=== PATIENT | male | born 1980 | race Two or more races ===

== ENCOUNTER 2024-08-05 17:32 | Emergency (ER) | payer MEDICAID, SELFPAY ==
[2024-08-05 17:33] VITALS: BMI 24.7
[2024-08-05 20:02] VITALS: BP 140/88; PULSE 76; RESP 18; TEMP 37.6; O2SAT 97
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
--- NOTE | 2024-08-05 20:11 | XR_ITS ---
Examination: CT maxillofacial, without intravenous contrast. 2-D sagittal reconstructions. 3-D reconstructions. Date and time of exam:August 05, 2024, 11:49 PM INDICATIONS: Left facial swelling today CTDI: vol (mGy):20.6 DLP: (mGycm):380 Technique: Multiple axial images of maxillofacial region, 3.0 mm slice thickness. 2-D sagittal and coronal reconstructions. 3-D reconstructions. Low dose protocols were performed. One or more of the following dose reduction techniques were used; automated exposure control, adjustment of the mA and/or KV according to patient size, use of iterative reconstruction technique. Findings: Frontal bone orbital rims intact Significant left maxillary sinus disease No nasal bone fracture No depression zygomatic arches Maxilla and mandible are intact The images are not centered No soft tissue abscess IMPRESSION: No acute fracture.
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
[2024-08-05] MEDS: DIPHTH,PERTUSS(ACELL),TET VAC 0.5 ML SYR- ADULT IMi (23:20)
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
[2024-08-06 01:16] VITALS: BP 164/71; PULSE 79; RESP 19; TEMP 37.2; O2SAT 98
[2024-08-06] MEDS: AMOXICILLIN/POT CLAV 875 TABLET 1 TAB PO ×2 (01:53)
== END 2024-08-06 02:18 | disposition home or self-care (01) ==
PROVIDERS: Emergency Provider Emergency Medicine
DX: S09.90XA Unspecified injury of head, initial encounter (principal); K04.7 Periapical abscess without sinus; W20.8XXA Other cause of strike by thrown, projected or falling object, initial encounter
CPT/HCPCS: 70450; 70486; 90471; 90715; 99284; A9270

== ENCOUNTER 2024-08-23 17:53 | Emergency (ER) | payer MEDICAID, SELFPAY ==
[2024-08-23 18:08] VITALS: BP 133/96; PULSE 95; RESP 16; TEMP 36.7; O2SAT 97
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
[2024-08-23] MEDS: FAMOTIDINE 20 MG TABLET PO (18:52)
[2024-08-23] MEDS: DiphenhydrAMINE 25 MG CAPSULE PO (18:53)
[2024-08-23] MEDS: DIAZEPAM 5 MG TABLET PO (18:53)
[2024-08-23] MEDS: DEXAMETHASONE SOD PHOS INJ 10 MG/ML VIAL PO (18:53)
[2024-08-23 20:01] VITALS: BP 122/77; PULSE 78; O2SAT 98
== END 2024-08-23 20:04 | disposition home or self-care (01) ==
PROVIDERS: Emergency Provider Emergency Medicine; PCP Family Medicine
DX: T63.441A Toxic effect of venom of bees, accidental (unintentional), initial encounter (principal); R06.00 Dyspnea, unspecified
CPT/HCPCS: 99282; J1100; A9270

== ENCOUNTER 2025-02-05 15:36 | Emergency (ER) | payer MEDICAID, SELFPAY ==
[2025-02-05 15:54] VITALS: PULSE 78; O2SAT 98; BMI 21.9
[2025-02-05 16:09] VITALS: BP 158/91; PULSE 81; RESP 18; TEMP 36.6; O2SAT 98
--- NOTE | 2025-02-05 16:19 | EKG_ITS ---
[facility] Test Date: 2025-02-05 Pat Name: GUILLERMINA MONTILLA Department: Room: - Gender: Male [employer] Developer: : 1980 Requested By: Josemanuel Bacon Order Number: [id number] Reading MD: Josemanuel Bacon Measurements Intervals Roby Rate: 79 P: 78 AL: 130 QRS: 59 QRSD: 94 T: 68 QT: 390 QTc: 450 Interpretive Statements SINUS RHYTHM MODERATE VOLTAGE CRITERIA FOR LVH, CONSIDER NORMAL VARIANT [MEETS CRITERIA IN ONE OF: R(aVL), S(V1), R(V5), R(V5/V6)+S(V1)] No previous ECG available for comparison /store/[email or web address]/[id number].pdf
--- NOTE | 2025-02-05 16:21 | PD.EDNV ---
Nausea/Vomit./Diarrhea-RME/HPI General Chief complaint: Nausea/Vomiting/Diarrhea Stated complaint: VOMITING AFTER DRINKING 6 BEERS AND USING METH Time Seen by Provider: 02/05/25 15:44 Arrival date/time: 02/05/25 15:36 Related Data Allergies Allergy/AdvReac Type Severity Reaction Status Date / Time No Known Allergies Allergy Verified 02/05/25 15:57 Course Orders Category Date Time Status EKG (ED ONLY) *Do not use* NOW Care 02/05/25 16:19 Active EKG (ED Only) Stat Exams 02/05/25 16:19 Ordered Alcohol, Blood Medical Stat Lab 02/05/25 16:20 Ordered CBC Stat Lab 02/05/25 16:20 Ordered CMP [Comprehensive Metabolic Panel] Stat Lab 02/05/25 16:20 Ordered Drug Screen,Urine Stat Lab 02/05/25 16:20 Ordered Lipase Stat Lab 02/05/25 16:20 Ordered Troponin I Stat Lab 02/05/25 16:21 Ordered UA [Urinalysis] Stat Lab 02/05/25 16:20 Ordered Vital Signs Vital signs: Vital Signs Temperature 98 F 02/05/25 16:09 Pulse Rate 81 02/05/25 16:09 Respiratory Rate 18 02/05/25 16:09 Blood Pressure 158/91 H 02/05/25 16:09 Pulse Oximetry (%) 98 02/05/25 16:09 Oxygen Delivery Method Room Air 02/05/25 16:09 Discharge Plan Patient/Caregiver Discharge Instructions Print Language: Upper Sorbian
--- NOTE | 2025-02-05 16:22 | PD.EDRME ---
Rapid Medical Screening Exam RME Arrival date/time: 02/05/25 15:36 Chief Complaint: Nausea/Vomiting/Diarrhea Time Seen by Provider: 02/05/25 15:44 Vital signs: Vital Signs Temperature 98 F 02/05/25 16:09 Pulse Rate 81 02/05/25 16:09 Respiratory Rate 18 02/05/25 16:09 Blood Pressure 158/91 H 02/05/25 16:09 Pulse Oximetry (%) 98 02/05/25 16:09 Oxygen Delivery Method Room Air 02/05/25 16:09 E Narrative: Patient reports n/v today after drinking a 6-pack and smoking meth today.
[2025-02-05 16:42] LABS: Collection Type, Urine Clean Catch; RBC,Urine 0 /hpf (0-3); WBC,Urine 0 /hpf (0-5)
[2025-02-05 17:07] LABS: Amorphous Crystals,Urine Present (Absent); Bilirubin,Urine Negative (Negative); Blood,Urine Negative (Negative); Glucose, Urine Negative (Negative); Ketones,Urine 1+ (Negative); Leukocyte Esterase,Urine Negative (Negative); Nitrite,Urine Negative (Negative); PH,Urine 7.0 (5.0-7.0); Protein,Urine Trace (Neg - Trace); Specific Gravity,Urine 1.015 (1.001-1.035); Squamous Epithelial Cell,Urine < 1 /hpf (0-5); Urobilinogen,Urine Negative mg/dL (0.0-1.0)
[2025-02-05 17:07] LABS: Basophils # (Auto) 0.0 Thou/mm3 (0.0-0.2); Basophils % (Auto) 0 % (0-2.5); Eosinophils # (Auto) 0.1 Thou/mm3 (0.0-0.5); Eosinophils % (Auto) 1 % (0-10); Hematocrit 47.4 % (41.0-53.0); Hemoglobin 16.3 g/dL (13.5-16.0); Immature Granulocytes Auto 0.03 Thou/mm3 (0.00-0.00); Lymphocytes # (Auto) 0.8 Thou/mm3 (1.0-4.8); Lymphocytes % (Auto) 9 % (10-50); Mean Corpuscular HGB Conc 34.4 g/dl (31.0-37.0); Mean Corpuscular Hemoglobin 30.0 pg (25.0-35.0); Mean Corpuscular Volume 87 fL (80-100); Monocytes # (Auto) 0.7 Thou/mm3 (0.0-0.8); Monocytes % (Auto) 7 % (0-12); Neutrophils # (Auto) 7.1 Thou/mm3 (1.8-7.7); Neutrophils % (Auto) 82 % (37-80); Nucleated Red Blood Cell # 0.00 Thou/mm3 (0.00-0.00); Nucleated Red Blood Cell % 0 /100 WBC (0); Platelet Count 261 Thou/mm3 (140-440); RDW Standard Deviation 41.6 fL (35.1-43.9); Red Blood Count 5.43 Miln/mm3 (4.50-5.90); White Blood Count 8.8 Thou/mm3 (3.8-10.6)
[2025-02-05 17:08] LABS: Amphetamine/Methamp Scrn,U Positive (Negative); Barbiturate Screen,Urine Negative (Negative); Benzodiazepines Screen,Urine Negative (Negative); Benzoylecgonine Screen, Ur Negative (Negative); Fentanyl Screen,Urine Positive (Negative); Opiate Screen,Urine Negative (Negative); THC Screen,Urine Negative (Negative)
[2025-02-05 17:15] LABS: Clarity,Urine Turbid (Clear/Hazy); Color,Urine Yellow (Lt Yel-Yel)
[2025-02-05 17:30] LABS: Alanine Aminotransferase 33 U/L (10-49); Albumin, Serum 5.1 gm/dL (3.5-5.0); Albumin/Globulin Ratio 1.7 (1.2-2.2); Alcohol, Blood Medical < 3.0 mg/dL (0-10.0); Alkaline Phosphatase 77 U/L (46-116); Anion Gap 9 (7-16); Aspartate Amino Transferase 33 U/L (0-34); BUN/Creatinine Ratio 9 Ratio (12-20); Bilirubin,Total 0.5 mg/dL (0.3-1.2); Blood Urea Nitrogen 7 mg/dL (9-23); Calcium 9.8 mg/dL (8.3-10.6); Calcium (Corrected) 9.8 mg/dL (8.5-10.1); Carbon Dioxide 30.1 mMol/L (20.0-31.0); Chloride 101 mMol/L (98-107); Creatinine (Component) 0.8 mg/dL (0.6-1.3); Estimated Creatinine Clearance 106.9 mL/min (>60); Globulin 3.0 gm/dL (2.3-3.5); Glucose 120 mg/dL (74-106); Lipase 42 U/L (12-53); Osmolality,Calculated 278 (275-295); Potassium 4.3 mMol/L (3.4-5.1); Sodium 140 mMol/L (136-145); Total Protein 8.1 gm/dL (5.7-8.2); Troponin I < 0.002 ng/mL (0.0-0.045); eGFR > 60 See Note
--- NOTE | 2025-02-05 18:15 | EDNOTE_ITS ---
ED General RME/HPI General Chief complaint: Nausea/Vomiting/Diarrhea Stated complaint: VOMITING AFTER DRINKING 6 BEERS AND USING METH Time Seen by Provider: 02/05/25 15:44 Arrival date/time: 02/05/25 15:36 RME / HPI RME / HPI narrative: 45 y/o male with past medical history of substance abuse (meth) who comes in for an evaluation after episode of nausea and vomiting with associated headache and abdominal pain, onset today and prior to arrival. Patient reports that he has had similar symptoms to these before. He said he was with a friend and he had some beers and used a bit of crystal meth and started to feel the symptoms. He says that he works in the [employer]. He says he did not pass out or feel like he was going to pass out, however had episodes of green-yellow vomiting. He says his abdominal pain is about a 7 right now. He says that his headache is located in the back of his head. He has no other complaints at this time. Related Data Allergies Allergy/AdvReac Type Severity Reaction Status Date / Time No Known Allergies Allergy Verified 02/05/25 15:57 Review of Systems Review of Systems Narrative Review of Systems: Constitutional: No fever, chills, fatigue, weakness, weight loss HEENT: No eye pain, vision loss, ear pain, hearing loss, dysphagia, Cardiovascular: No chest pain, palpitations, edema, pain with walking Respiratory: No cough, shortness of breath, wheezing GI: +Vomiting, + abdominal pain, constipation, blood in stool, loss of appetite, heartburn Extremities: No presence of pitting edema MSK: No back pain, joint pain, joint swelling Neuro: No dizziness, numbness, weakness, + headaches, no seizures, tremors Psych: No anxiety, depression ED Exam Narrative Physical exam: General: AAOx3, NAD, wearing hat, slim male HEENT: Moist mucous membranes, conjunctiva clear, EOMI, PERRLA, Cardiovascular: S1, S2, radial pulses +2 bilat, RRR Pulmonary: CTAB bilat no cough, no wheezing GI: No tenderness to light or deep palpitation, no guarding, rigidity, rebound tenderness or distension Back: Left-sided back tenderness. Extremities: No presence of trace or pitting edema in lower extremities bilaterally, dorsalis pedis pulses +2 bilaterally Neuro: AAOx3, no focal motor or sensory deficits in the UE or LE bilat Psych: Good judgement, thought and behavior Course Quality Measures none Orders Category Date Time Status EKG (ED ONLY) *Do not use* NOW Care 02/05/25 16:19 Completed Encourage Fluid Intake NOW Care 02/05/25 18:24 Active EKG (ED Only) Stat Exams 02/05/25 16:19 Draft Alcohol, Blood Medical Stat Lab 02/05/25 16:51 Completed CBC Stat Lab 02/05/25 16:51 Completed CMP [Comprehensive Metabolic Panel] Stat Lab 02/05/25 16:51 Completed Drug Screen,Urine Stat Lab 02/05/25 16:35 Completed Lipase Stat Lab 02/05/25 16:51 Completed Troponin I Stat Lab 02/05/25 16:51 Completed UA [Urinalysis] Stat Lab 02/05/25 16:35 Completed Acetaminophen Tab [Tylenol Tab] Med 02/05/25 18:24 Discontinued 650 mg PO X1 ONE Ondansetron Odt [Zofran Odt] Med 02/05/25 18:24 Discontinued 4 mg PO X1 ONE Pantoprazole [Protonix] Med 02/05/25 18:24 Discontinued 40 mg PO X1 ONE mg Hyd/Al Hyd/Bibi Susp [Maalox Susp] Med 02/05/25 18:24 Discontinued 30 ml PO X1 ONE Vital Signs Vital signs: Vital Signs Temperature 98 F 02/05/25 16:09 Pulse Rate 81 02/05/25 16:09 Respiratory Rate 18 02/05/25 16:09 Blood Pressure 158/91 H 02/05/25 16:09 Pulse Oximetry (%) 98 02/05/25 16:09 Oxygen Delivery Method Room Air 02/05/25 16:09 Discharge Plan Plan Patient Disposition: HOME (Self Care) Prescriptions/Referrals Referrals: Rainer Daugherty MD [Primary Care Provider, Family Practice] - In 1 week Problem List Clinical Impression: Methamphetamine intoxication Patient/Caregiver Discharge Instructions Additional Instructions: Discharge instructions Follow-up with your PCP within 1 week AVOID ALL SUBSTANCES INCLUDING METH, Alcohol, and other substances Encourage oral hydration Return to ED if your symptoms worsen or return Print Language: Estonian Stand Alone Forms: Rona Award Info., Patient Portal Info Letter [facility] Medical Records reviewed Medical Records additional comments: 1827: After evaluating the patient, I do not believe a head CT is warranted at this time as his headache is likely related to dehydration. Patient can have oral hydration at this time as I do not believe he is clinically dry enough for IV insertion of fluids. I will administer Tylenol in addition to Protonix, Zofran and Maalox there is concern for GI prophylaxis and abdominal pain. There is concern as his urine did show amorphous crystals which could be related to dehydration, however also a stone. He did have some tenderness in his back on his left side, however despite this, there are are no RBCs or blood shown in the urine which makes me believe there is less likely a kidney stone and this is more of a musculoskeletal problem. He also has erythrocytosis and 16s which has been chronic for some time which he needs to follow-up outpatient for. These numbers could also be related to chronic dehydration. 1945: Pt's pain improved, likely diagnosis of Methamphetamine intoxicity at this time. Pt medically cleared for discharged. Medication Administration(s) Medication Administration History Discontinued Medications Acetaminophen (Acetaminophen 325 Mg Tablet) 650 mg PO X1 ONE Stop: 02/05/25 18:25 Last Admin: 02/05/25 19:08 Dose: 650 mg Documented By: OA Al Hydrox/Mg Hydrox/Simethicone (Mg Hyd/Al Hyd/Bibi (Maalox Reg) Susp 30 Ml Udc) 30 ml PO X1 ONE Stop: 02/05/25 18:25 Last Admin: 02/05/25 19:08 Dose: 30 ml Documented By: OA Ondansetron HCl (Ondansetron Odt 4 Mg Tabrap) 4 mg PO X1 ONE; Protocol Stop: 02/05/25 18:25 Last Admin: 02/05/25 19:09 Dose: 4 mg Documented By: OA Pantoprazole Sodium (Pantoprazole 40 Mg Tablet) 40 mg PO X1 ONE Stop: 02/05/25 18:25 Last Admin: 02/05/25 19:08 Dose: 40 mg Documented By: OA Diagnosis Diagnoses ruled out and/or further discussions: Dehydration, drug-induced nausea and vomiting, gastroenteritis, migraine
[2025-02-05] MEDS: PANTOPRAZOLE 40 MG TABLET PO (19:08)
[2025-02-05] MEDS: ACETAMINOPHEN 325 MG TABLET 650 MG PO (19:08)
[2025-02-05] MEDS: MG HYD/AL HYD/SIME (Maalox Reg) SUSP 30 ML UDC PO (19:08)
[2025-02-05] MEDS: ONDANSETRON ODT 4 MG TABRAP PO (19:09)
[2025-02-05 19:53] VITALS: BP 138/76; PULSE 76; RESP 16; TEMP 36.7; O2SAT 98
== END 2025-02-05 19:56 | disposition home or self-care (01) ==
PROVIDERS: Physician Assistant; PCP Family Medicine
DX: F15.129 Other stimulant abuse with intoxication, unspecified (principal)
CPT/HCPCS: 36415; 80053; 80307; 80320; 81001; 83690; 84484; 85025; 93005; 99284; Q0162; A9270; G0480